=== PATIENT | male | born 1965 | race Asian ===

== ENCOUNTER 2017-01-03 14:01 | Inpatient (IN) | payer MEDICAID, OTHER ==
[~2017-01-03] VITALS: Ht 177.8 cm; Wt 92.6 kg
[~2017-01-03 14:01] MED LIST: ARIP10TA14 PO; DOCU250C76 PO; LISI-660 PO; TRAZ-147 PO
[2017-01-03] MEDS ORDERED: ACET-2247 PO (14:27)
[2017-01-03] MEDS ORDERED: CARV6 PO (14:27)
[2017-01-03] MEDS ORDERED: IBUP-2070 PO (14:27)
[2017-01-03] MEDS ORDERED: LISI-660 PO (14:27)
[2017-01-03] MEDS ORDERED: HALO5 PO (14:27)
[2017-01-03 15:01] LABS: BASOPHILS % (AUTO) 0.4 % (0.0-2.0); EOSINOPHILS % (AUTO) 1.3 % (1.0-6.0); HEMATOCRIT 47.5 % (41-53); HEMOGLOBIN 15.4 g/dL (13.5-17.5); LYMPHOCYTES # (AUTO) 1.6 K/uL (1.0-4.8); LYMPHOCYTES % (AUTO) 13.4 % (22.0-44.0); MEAN CORPUSCULAR HEMOGLOBIN 26.7 pg (26.0-34.0); MEAN CORPUSCULAR HGB CONC 32.5 G/dL (31.0-37.0); MEAN CORPUSCULAR VOLUME 82 fL (80-100); MONOCYTES # (AUTO) 0.8 K/uL (0.1-1.0); MONOCYTES % (AUTO) 6.7 % (2.0-9.0); NEUTROPHILS # (AUTO) 9.4 K/uL (1.8-7.7); NEUTROPHILS % (AUTO) 78.2 % (40.0-70.0); PLATELET COUNT (AUTO) 271 K/uL (150-450); RED BLOOD CELL COUNT(AUTO) 5.79 MIL/uL (4.50-5.90); RED CELL DISTRIBUTION WIDTH 15.6 % (11.5-14.5)
[2017-01-03 15:10] LABS: ANION GAP 8 mmol/L (8-16); CALCIUM, TOTAL 8.5 mg/dL (8.8-10.5); CARBON DIOXIDE 29 mmol/L (22-29); CHLORIDE 104 mmol/L (98-107); CREATININE 0.71 mg/dL (0.60-1.30); GLOMERULAR FILTR. RATE CALC > 60 mL/min (>60); SODIUM SERUM 141 mmol/L (136-145); UREA NITROGEN, BLOOD 12 mg/dL (7-18)
[2017-01-03 15:15] LABS: ALANINE AMINOTRANSFERASE 19 U/L (12-78); ASPARTATE AMINOTRANSFERASE 12 U/L (15-37); BILIRUBIN,TOTAL 0.4 mg/dL (0.1-1.0); TOTAL PROTEIN, SERUM 7.9 g/dL (6.4-8.2)
[2017-01-03] MEDS ORDERED: LORazepam 2 MG TABLET PO PRN (17:45)
[2017-01-03] MEDS ORDERED: PROMETHAZINE HCL 25 MG TABLET PO PRN (17:45)
[2017-01-03] MEDS ORDERED: MAGNESIUM HYDROXIDE SUSPENSION 30 ML UDCUP PO PRN (17:45)
[2017-01-03] MEDS ORDERED: ACETAMINOPHEN 325 MG TABLET PO PRN (17:45)
[2017-01-03] MEDS ORDERED: CYANOCOBALAMIN 1,000 MCG/ML VIAL IM ONE (17:45)
[2017-01-03] MEDS ORDERED: GuaiFENesin/D-METHORPHAN [SUGAR-FREE] 200-20MG/10 ML SYRUP UDCUP PO PRN (17:45)
[2017-01-03] MEDS ORDERED: HydrOXYzine PAMOATE 50 MG CAPSULE PO PRN (17:45)
[2017-01-03] MEDS ORDERED: LOPERAMIDE HCL 2 MG CAPSULE PO PRN (17:45)
[2017-01-03] MEDS ORDERED: ZOLPIDEM TARTRATE 10 MG TABLET PO PRN (17:45)
[2017-01-03] MEDS ORDERED: TUBERCULIN, PURIFIED PROTEIN DERIVATIVE 5 TU/0.1 ML SYG ID ONE (17:45)
[2017-01-03] MEDS ORDERED: MAG HYDROX/AL HYDROX/SIMETH ES 30 ML SUSPENSION UDCUP PO PRN (17:45)
[2017-01-03] MEDS ORDERED: QUEtiapine FUMARATE 100 MG TABLET PO PRN (17:45)
[2017-01-03] MEDS ORDERED: ARIP15TA3 PO (17:47)
[2017-01-03] MEDS ORDERED: MIRTAZAPINE 15 MG TABLET PO SCH (21:00)
[2017-01-03] MEDS ORDERED: PNEUMOCOCCAL VACCINE POLYVALENT 0.5 ML VIAL [PPSV23] IM ONE (21:45)
[2017-01-03 22:00] VITALS: BP 132/97
[2017-01-03] MEDS: THIAMINE HCL 100 MG TABLET PO SCH (22:02)
[2017-01-03] MEDS: QUEtiapine FUMARATE 200 MG TABLET PO SCH (22:02)
[2017-01-04 07:10] LABS: BASOPHILS % (AUTO) 0.3 % (0.0-2.0); EOSINOPHILS % (AUTO) 2.5 % (1.0-6.0); HEMATOCRIT 46.1 % (41-53); HEMOGLOBIN 14.9 g/dL (13.5-17.5); LYMPHOCYTES # (AUTO) 2.2 K/uL (1.0-4.8); LYMPHOCYTES % (AUTO) 21.1 % (22.0-44.0); MEAN CORPUSCULAR HEMOGLOBIN 26.7 pg (26.0-34.0); MEAN CORPUSCULAR HGB CONC 32.3 G/dL (31.0-37.0); MEAN CORPUSCULAR VOLUME 83 fL (80-100); MONOCYTES % (AUTO) 9.2 % (2.0-9.0); NEUTROPHILS # (AUTO) 7.1 K/uL (1.8-7.7); NEUTROPHILS % (AUTO) 66.9 % (40.0-70.0); PLATELET COUNT (AUTO) 235 K/uL (150-450); RED BLOOD CELL COUNT(AUTO) 5.58 MIL/uL (4.50-5.90); RED CELL DISTRIBUTION WIDTH 15.4 % (11.5-14.5); WHITE BLOOD COUNT (AUTO) 10.5 K/uL (4.5-11.0)
[2017-01-04 07:30] LABS: ALANINE AMINOTRANSFERASE 19 U/L (12-78); ALBUMIN 3.6 g/dL (3.4-5.0); ANION GAP 6 mmol/L (8-16); ASPARTATE AMINOTRANSFERASE 9 U/L (15-37); BILIRUBIN,TOTAL 0.4 mg/dL (0.1-1.0); CALCIUM, TOTAL 8.7 mg/dL (8.8-10.5); CARBON DIOXIDE 31 mmol/L (22-29); CHLORIDE 107 mmol/L (98-107); CHOL/HDL RATIO 3.7 (4.2-7.3); CREATININE 0.64 mg/dL (0.60-1.30); GLOMERULAR FILTR. RATE CALC > 60 mL/min (>60); POTASSIUM 3.9 mmol/L (3.5-5.1); SODIUM SERUM 144 mmol/L (136-145); THYROID STIMULATING HORMONE 0.61 uIU/mL (0.36-3.74); TOTAL PROTEIN, SERUM 7.4 g/dL (6.4-8.2); UREA NITROGEN, BLOOD 13 mg/dL (7-18)
[2017-01-04] MEDS ORDERED: ACETAMINOPHEN 325 MG TABLET PO PRN (07:30)
[2017-01-04 07:42] LABS: HEMOGLOBIN A1C 5.4 % (4.5-6.2)
[2017-01-04] MEDS: DOCUSATE SODIUM 250 MG CAPSULE PO SCH (08:33)
[2017-01-04] MEDS: MULTIVITAMINS WITH MINERALS, THERAPEUTIC TABLET PO SCH (08:34)
[2017-01-04] MEDS: THIAMINE HCL 100 MG TABLET PO SCH ×2 (08:34→16:33)
[2017-01-04] MEDS: LISINOPRIL 5 MG TABLET PO SCH (08:34)
[2017-01-04] MEDS: FOLIC ACID 1 MG TABLET PO SCH (08:34)
[2017-01-04 09:17] VITALS: BP 147/97
[2017-01-04 16:46] VITALS: BP 158/88
[2017-01-04] MEDS: QUEtiapine FUMARATE 200 MG TABLET PO SCH (20:11)
[2017-01-05 08:39] LABS: APPEARANCE,URINE CLEAR (CLEAR); GLUCOSE, URINE (UA) NEGATIVE (NEGATIVE); KETONES,URINE NEGATIVE (NEGATIVE); LEUKOCYTE ESTERASE ,URINE NEGATIVE (NEGATIVE); OCCULT BLOOD,URINE NEGATIVE (NEGATIVE); PROTEIN,URINE NEGATIVE (NEGATIVE)
[2017-01-05 08:42] LABS: ADD UA MICROSCOPIC NO
[2017-01-05] MEDS: THIAMINE HCL 100 MG TABLET PO SCH ×2 (09:17→16:04)
[2017-01-05] MEDS: LISINOPRIL 5 MG TABLET PO SCH (09:17)
[2017-01-05] MEDS: FOLIC ACID 1 MG TABLET PO SCH (09:17)
[2017-01-05] MEDS: DOCUSATE SODIUM 250 MG CAPSULE PO SCH (09:17)
[2017-01-05] MEDS: MULTIVITAMINS WITH MINERALS, THERAPEUTIC TABLET PO SCH (09:17)
[2017-01-05 09:47] VITALS: BP 113/92
[2017-01-05] MEDS: IBUPROFEN 600 MG TABLET PO PRN (12:48)
[2017-01-05] MEDS: QUEtiapine FUMARATE 200 MG TABLET PO SCH (19:58)
[2017-01-05 21:36] VITALS: BP 135/78
[2017-01-06 08:15] VITALS: BP 144/95
[2017-01-06] MEDS: FOLIC ACID 1 MG TABLET PO SCH (08:52)
[2017-01-06] MEDS: MULTIVITAMINS WITH MINERALS, THERAPEUTIC TABLET PO SCH (08:52)
[2017-01-06] MEDS: LISINOPRIL 5 MG TABLET PO SCH (08:53)
[2017-01-06] MEDS: DOCUSATE SODIUM 250 MG CAPSULE PO SCH (08:53)
[2017-01-06] MEDS: THIAMINE HCL 100 MG TABLET PO SCH ×2 (08:53→16:11)
[2017-01-06 12:23] VITALS: BP 135/89
[2017-01-06] MEDS: IBUPROFEN 600 MG TABLET PO PRN (12:23)
[2017-01-06 17:40] VITALS: BP 128/92
[2017-01-06] MEDS: QUEtiapine FUMARATE 200 MG TABLET PO SCH (20:14)
[2017-01-06] MEDS: DIVALPROEX SODIUM 500 MG ER TABLET PO SCH (20:14)
[2017-01-07] MEDS: THIAMINE HCL 100 MG TABLET PO SCH ×2 (08:31→16:21)
[2017-01-07] MEDS: FOLIC ACID 1 MG TABLET PO SCH (08:31)
[2017-01-07] MEDS: MULTIVITAMINS WITH MINERALS, THERAPEUTIC TABLET PO SCH (08:31)
[2017-01-07] MEDS: LISINOPRIL 5 MG TABLET PO SCH (08:31)
[2017-01-07] MEDS: DOCUSATE SODIUM 250 MG CAPSULE PO SCH (08:31)
[2017-01-07 10:54] VITALS: BP 148/94
[2017-01-07 16:54] VITALS: BP 132/93
[2017-01-07] MEDS: DIVALPROEX SODIUM 500 MG ER TABLET PO SCH (20:01)
[2017-01-07] MEDS: QUEtiapine FUMARATE 200 MG TABLET PO SCH (20:02)
[2017-01-08 08:04] VITALS: BP 128/95
[2017-01-08] MEDS: MULTIVITAMINS WITH MINERALS, THERAPEUTIC TABLET PO SCH (08:44)
[2017-01-08] MEDS: DOCUSATE SODIUM 250 MG CAPSULE PO SCH (08:44)
[2017-01-08] MEDS: THIAMINE HCL 100 MG TABLET PO SCH ×2 (08:45→15:59)
[2017-01-08] MEDS: FOLIC ACID 1 MG TABLET PO SCH (08:45)
[2017-01-08] MEDS: LISINOPRIL 5 MG TABLET PO SCH (08:45)
[2017-01-08 16:55] VITALS: BP 143/84
[2017-01-08] MEDS: DIVALPROEX SODIUM 500 MG ER TABLET PO SCH (20:09)
[2017-01-08] MEDS: QUEtiapine FUMARATE 200 MG TABLET PO SCH (20:09)
[2017-01-09 08:00] VITALS: BP 145/105
[2017-01-09] MEDS: THIAMINE HCL 100 MG TABLET PO SCH ×2 (08:49→15:49)
[2017-01-09] MEDS: DOCUSATE SODIUM 250 MG CAPSULE PO SCH (08:49)
[2017-01-09] MEDS: LISINOPRIL 5 MG TABLET PO SCH (08:49)
[2017-01-09] MEDS: FOLIC ACID 1 MG TABLET PO SCH (08:49)
[2017-01-09] MEDS: MULTIVITAMINS WITH MINERALS, THERAPEUTIC TABLET PO SCH (08:50)
[2017-01-09 10:25] VITALS: BP 140/92
[2017-01-09] MEDS: DIVALPROEX SODIUM 500 MG ER TABLET PO SCH (20:11)
[2017-01-09] MEDS: QUEtiapine FUMARATE 200 MG TABLET PO SCH (20:11)
[2017-01-09 21:19] VITALS: BP 136/86
[2017-01-10 08:59] VITALS: BP 154/100
[2017-01-10] MEDS: IBUPROFEN 600 MG TABLET PO PRN (09:04)
[2017-01-10] MEDS: THIAMINE HCL 100 MG TABLET PO SCH ×2 (09:05→16:15)
[2017-01-10] MEDS: LISINOPRIL 5 MG TABLET PO SCH (09:05)
[2017-01-10] MEDS: FOLIC ACID 1 MG TABLET PO SCH (09:05)
[2017-01-10] MEDS: MULTIVITAMINS WITH MINERALS, THERAPEUTIC TABLET PO SCH (09:05)
[2017-01-10] MEDS: DOCUSATE SODIUM 250 MG CAPSULE PO SCH (09:05)
[2017-01-10 11:26] VITALS: BP 135/99
[2017-01-10 14:55] VITALS: BP 131/79
[2017-01-10 16:52] VITALS: BP 129/75
[2017-01-10] MEDS: DIVALPROEX SODIUM 500 MG ER TABLET PO SCH (20:02)
[2017-01-10] MEDS: QUEtiapine FUMARATE 200 MG TABLET PO SCH (20:05)
[2017-01-11 08:00] VITALS: BP 139/100
[2017-01-11] MEDS: FOLIC ACID 1 MG TABLET PO SCH (08:06)
[2017-01-11] MEDS: DOCUSATE SODIUM 250 MG CAPSULE PO SCH (08:06)
[2017-01-11] MEDS: LISINOPRIL 5 MG TABLET PO SCH (08:06)
[2017-01-11] MEDS: MULTIVITAMINS WITH MINERALS, THERAPEUTIC TABLET PO SCH (08:06)
[2017-01-11] MEDS: THIAMINE HCL 100 MG TABLET PO SCH ×2 (08:07→17:04)
[2017-01-11 11:38] VITALS: BP 140/91
[2017-01-11] MEDS: IBUPROFEN 600 MG TABLET PO PRN (11:38)
[2017-01-11] MEDS ORDERED: QUET200T29 PO (12:20)
[2017-01-11] MEDS ORDERED: DIVA500T52 PO (12:20)
[2017-01-11 17:00] VITALS: BP 141/88
[2017-01-11] MEDS: QUEtiapine FUMARATE 200 MG TABLET PO SCH (20:16)
[2017-01-11] MEDS: DIVALPROEX SODIUM 500 MG ER TABLET PO SCH (20:16)
[2017-01-12] MEDS: THIAMINE HCL 100 MG TABLET PO SCH (08:00)
[2017-01-12] MEDS: MULTIVITAMINS WITH MINERALS, THERAPEUTIC TABLET PO SCH (08:01)
[2017-01-12] MEDS: DOCUSATE SODIUM 250 MG CAPSULE PO SCH (08:01)
[2017-01-12] MEDS: FOLIC ACID 1 MG TABLET PO SCH (08:01)
[2017-01-12] MEDS: LISINOPRIL 5 MG TABLET PO SCH (08:01)
[2017-01-12] MEDS ORDERED: DIVA500T52 PO (08:47)
[2017-01-12] MEDS ORDERED: QUET200T PO (08:48)
[2017-01-12 10:15] VITALS: BP 135/78
[2017-01-12] MEDS: IBUPROFEN 600 MG TABLET PO PRN (11:01)
== END 2017-01-12 13:50 | disposition home or self-care (01) | DRG 750 ==
LOC: EMS 14:03 → 3EI 20:16
PROVIDERS: ADMIT Psychiatry & Neurology Psychiatry; ATTEND Psychiatry & Neurology Psychiatry
PROC: GZ51ZZZ Individual Psychotherapy, Behavioral (ICD-10-PCS; principal; 2017-01-03)
DX: F25.0 Schizoaffective disorder, bipolar type (principal); R45.851 Suicidal ideations; G81.94 Hemiplegia, unspecified affecting left nondominant side; I10 Essential (primary) hypertension; G47.00 Insomnia, unspecified; M81.0 Age-related osteoporosis without current pathological fracture; F17.200 Nicotine dependence, unspecified, uncomplicated; G89.4 Chronic pain syndrome; K59.00 Constipation, unspecified; F12.90 Cannabis use, unspecified, uncomplicated; Z59.0 Homelessness; Z91.19 Patient's noncompliance with other medical treatment and regimen; Z88.0 Allergy status to penicillin; Z91.013 Allergy to seafood; Z79.899 Other long term (current) drug therapy; Z79.1 Long term (current) use of non-steroidal anti-inflammatories (NSAID); Z98.890 Other specified postprocedural states; Z90.49 Acquired absence of other specified parts of digestive tract; Z85.038 Personal history of other malignant neoplasm of large intestine; Z83.3 Family history of diabetes mellitus; Z82.5 Family history of asthma and other chronic lower respiratory diseases
CPT/HCPCS: 83036; 84439; 84443; 86592; 99285; G0480; J3420

== ENCOUNTER 2017-01-12 16:49 | Inpatient (IN) | payer MEDICAID, OTHER ==
[~2017-01-12] VITALS: Ht 177.8 cm; Wt 97.0 kg
[~2017-01-12 16:49] MED LIST changes: +ACET-2247 PO; -ARIP10TA14 PO; +ARIP15TA3 PO; +CARV6 PO; +DIVA500T52 PO; +HALO5 PO; +IBUP-2070 PO; +QUET200T PO; +QUET200T29 PO
[2017-01-12 18:46] LABS: ANION GAP 8 mmol/L (8-16); CALCIUM, TOTAL 8.5 mg/dL (8.8-10.5); CARBON DIOXIDE 26 mmol/L (22-29); CHLORIDE 102 mmol/L (98-107); CREATININE 0.58 mg/dL (0.60-1.30); GLOMERULAR FILTR. RATE CALC > 60 mL/min (>60); POTASSIUM 4.7 mmol/L (3.5-5.1); SODIUM SERUM 136 mmol/L (136-145); UREA NITROGEN, BLOOD 17 mg/dL (7-18)
[2017-01-12 18:52] LABS: ALANINE AMINOTRANSFERASE 20 U/L (12-78); ALBUMIN 3.3 g/dL (3.4-5.0); ASPARTATE AMINOTRANSFERASE 21 U/L (15-37); BILIRUBIN,TOTAL 0.4 mg/dL (0.1-1.0); TOTAL PROTEIN, SERUM 7.3 g/dL (6.4-8.2)
[2017-01-12 19:13] LABS: BASOPHILS % (AUTO) 0.1 % (0.0-2.0); EOSINOPHILS % (AUTO) 2.3 % (1.0-6.0); HEMATOCRIT 45.2 % (41-53); HEMOGLOBIN 14.6 g/dL (13.5-17.5); LYMPHOCYTES # (AUTO) 1.5 K/uL (1.0-4.8); LYMPHOCYTES % (AUTO) 13.1 % (22.0-44.0); MEAN CORPUSCULAR HEMOGLOBIN 26.8 pg (26.0-34.0); MEAN CORPUSCULAR HGB CONC 32.3 G/dL (31.0-37.0); MEAN CORPUSCULAR VOLUME 83 fL (80-100); MONOCYTES # (AUTO) 0.7 K/uL (0.1-1.0); MONOCYTES % (AUTO) 6.1 % (2.0-9.0); NEUTROPHILS # (AUTO) 8.8 K/uL (1.8-7.7); NEUTROPHILS % (AUTO) 78.4 % (40.0-70.0); PLATELET COUNT (AUTO) 213 K/uL (150-450); RED BLOOD CELL COUNT(AUTO) 5.45 MIL/uL (4.50-5.90); RED CELL DISTRIBUTION WIDTH 15.3 % (11.5-14.5); WHITE BLOOD COUNT (AUTO) 11.2 K/uL (4.5-11.0)
[2017-01-12] MEDS ORDERED: ZOLPIDEM TARTRATE 10 MG TABLET PO PRN (20:30)
[2017-01-12] MEDS ORDERED: HALOPERIDOL 5 MG TABLET PO PRN (20:30)
[2017-01-12 22:11] LABS: VALPROIC ACID 74 mcg/mL (50-100)
[2017-01-13 00:55] VITALS: BP 157/117
[2017-01-13] MEDS ORDERED: PNEUMOCOCCAL VACCINE POLYVALENT 0.5 ML VIAL [PPSV23] IM ONE (02:45)
[2017-01-13 08:57] VITALS: BP 152/95
[2017-01-13] MEDS ORDERED: CloNIDine HCL 0.1 MG TABLET PO PRN (09:45)
[2017-01-13] MEDS: LISINOPRIL 5 MG TABLET PO SCH (10:57)
[2017-01-13] MEDS: LOPERAMIDE HCL 2 MG CAPSULE PO PRN ×2 (10:58→14:25)
[2017-01-13 17:16] VITALS: BP 137/91
[2017-01-13] MEDS ORDERED: ACETAMINOPHEN 325 MG TABLET PO PRN ×2 (17:30→21:30)
[2017-01-13] MEDS: LORazepam 2 MG TABLET PO PRN (20:11)
[2017-01-13] MEDS ORDERED: ChlorproMAZINE HCL 100 MG TABLET PO PRN (21:30)
[2017-01-13] MEDS ORDERED: QUEtiapine FUMARATE 200 MG TABLET PO SCH (21:30)
[2017-01-14] MEDS: LISINOPRIL 5 MG TABLET PO SCH (08:20)
[2017-01-14 09:03] VITALS: BP 145/96
[2017-01-14] MEDS: IBUPROFEN 400 MG TABLET PO PRN (09:03)
[2017-01-14 16:00] VITALS: BP 136/84
[2017-01-14] MEDS: QUEtiapine FUMARATE 300 MG TABLET PO SCH (20:43)
[2017-01-14] MEDS ORDERED: QUEtiapine FUMARATE 200 MG TABLET PO SCH ×2 (21:00)
[2017-01-15 08:00] VITALS: BP 125/94
[2017-01-15] MEDS: LISINOPRIL 5 MG TABLET PO SCH (08:11)
[2017-01-15] MEDS: IBUPROFEN 400 MG TABLET PO PRN (08:11)
[2017-01-15 16:00] VITALS: BP 120/86
[2017-01-15] MEDS: QUEtiapine FUMARATE 300 MG TABLET PO SCH (20:03)
[2017-01-16 09:00] VITALS: BP 160/106
[2017-01-16] MEDS: LISINOPRIL 5 MG TABLET PO SCH (09:00)
[2017-01-16] MEDS: IBUPROFEN 400 MG TABLET PO PRN ×2 (09:03→17:52)
[2017-01-16 10:03] VITALS: BP 126/96
[2017-01-16 17:53] VITALS: BP 153/90
[2017-01-16] MEDS: QUEtiapine FUMARATE 300 MG TABLET PO SCH (20:16)
[2017-01-17] MEDS: LISINOPRIL 5 MG TABLET PO SCH (08:24)
[2017-01-17] MEDS: IBUPROFEN 400 MG TABLET PO PRN (08:26)
[2017-01-17 08:28] VITALS: BP 133/81
[2017-01-17 09:26] VITALS: BP 135/79
[2017-01-17] MEDS ORDERED: QUEtiapine FUMARATE 100 MG TABLET PO PRN (12:00)
[2017-01-17] MEDS ORDERED: PROMETHAZINE HCL 25 MG TABLET PO PRN (12:00)
[2017-01-17] MEDS ORDERED: MAG HYDROX/AL HYDROX/SIMETH ES 30 ML SUSPENSION UDCUP PO PRN (12:00)
[2017-01-17] MEDS ORDERED: HydrOXYzine PAMOATE 50 MG CAPSULE PO PRN (12:00)
[2017-01-17] MEDS ORDERED: MAGNESIUM HYDROXIDE SUSPENSION 30 ML UDCUP PO PRN (12:00)
[2017-01-17] MEDS ORDERED: GuaiFENesin/D-METHORPHAN [SUGAR-FREE] 200-20MG/10 ML SYRUP UDCUP PO PRN (12:00)
[2017-01-17] MEDS: THIAMINE HCL 100 MG TABLET PO SCH (16:01)
[2017-01-17] MEDS: LORazepam 2 MG TABLET PO PRN (16:01)
[2017-01-17 19:15] VITALS: BP 130/84
[2017-01-17] MEDS: DIVALPROEX SODIUM 500 MG ER TABLET PO SCH (20:05)
[2017-01-17] MEDS: QUEtiapine FUMARATE 200 MG TABLET PO SCH (20:05)
[2017-01-18 08:40] VITALS: BP 149/97
[2017-01-18] MEDS: FOLIC ACID 1 MG TABLET PO SCH (08:45)
[2017-01-18] MEDS: MULTIVITAMINS WITH MINERALS, THERAPEUTIC TABLET PO SCH (08:45)
[2017-01-18] MEDS: LISINOPRIL 5 MG TABLET PO SCH (08:45)
[2017-01-18] MEDS: THIAMINE HCL 100 MG TABLET PO SCH ×2 (08:45→16:52)
[2017-01-18] MEDS: IBUPROFEN 400 MG TABLET PO PRN (08:46)
[2017-01-18] MEDS: CELECOXIB 100 MG CAPSULE PO SCH ×2 (10:55→16:52)
[2017-01-18 20:00] VITALS: BP 139/90
[2017-01-18] MEDS: DIVALPROEX SODIUM 500 MG ER TABLET PO SCH (20:31)
[2017-01-18] MEDS: QUEtiapine FUMARATE 200 MG TABLET PO SCH (20:31)
[2017-01-19 08:22] VITALS: BP 156/103
[2017-01-19] MEDS: MULTIVITAMINS WITH MINERALS, THERAPEUTIC TABLET PO SCH (08:24)
[2017-01-19] MEDS: FOLIC ACID 1 MG TABLET PO SCH (08:24)
[2017-01-19] MEDS: NALTREXONE HCL 50 MG TABLET PO SCH (08:24)
[2017-01-19] MEDS: LISINOPRIL 5 MG TABLET PO SCH (08:24)
[2017-01-19] MEDS: CELECOXIB 100 MG CAPSULE PO SCH ×2 (08:24→16:19)
[2017-01-19] MEDS: THIAMINE HCL 100 MG TABLET PO SCH ×2 (08:25→16:19)
[2017-01-19] MEDS: LOPERAMIDE HCL 2 MG CAPSULE PO PRN (14:57)
[2017-01-19] MEDS: DIVALPROEX SODIUM 500 MG ER TABLET PO SCH (20:11)
[2017-01-19] MEDS: QUEtiapine FUMARATE 200 MG TABLET PO SCH (20:11)
[2017-01-19 22:42] VITALS: BP 136/89
[2017-01-20] MEDS: CELECOXIB 100 MG CAPSULE PO SCH ×2 (09:33→16:35)
[2017-01-20] MEDS: LISINOPRIL 5 MG TABLET PO SCH (09:33)
[2017-01-20] MEDS: FOLIC ACID 1 MG TABLET PO SCH (12:35)
[2017-01-20] MEDS: NALTREXONE HCL 50 MG TABLET PO SCH (12:35)
[2017-01-20] MEDS: THIAMINE HCL 100 MG TABLET PO SCH ×2 (12:35→16:34)
[2017-01-20] MEDS: MULTIVITAMINS WITH MINERALS, THERAPEUTIC TABLET PO SCH (12:35)
[2017-01-20] MEDS: LOPERAMIDE HCL 2 MG CAPSULE PO PRN ×2 (16:34→20:21)
[2017-01-20] MEDS: QUEtiapine FUMARATE 200 MG TABLET PO SCH (20:21)
[2017-01-20] MEDS: DIVALPROEX SODIUM 500 MG ER TABLET PO SCH (20:21)
[2017-01-21 08:00] VITALS: BP 131/97
[2017-01-21] MEDS: FOLIC ACID 1 MG TABLET PO SCH (08:49)
[2017-01-21] MEDS: CELECOXIB 100 MG CAPSULE PO SCH ×2 (08:49→16:25)
[2017-01-21] MEDS: THIAMINE HCL 100 MG TABLET PO SCH ×2 (08:49→16:25)
[2017-01-21] MEDS: NALTREXONE HCL 50 MG TABLET PO SCH (08:49)
[2017-01-21] MEDS: MULTIVITAMINS WITH MINERALS, THERAPEUTIC TABLET PO SCH (08:49)
[2017-01-21] MEDS: LISINOPRIL 5 MG TABLET PO SCH (08:50)
[2017-01-21] MEDS ORDERED: IBUPROFEN 400 MG TABLET PO PRN (11:30)
[2017-01-21] MEDS ORDERED: DIVA500T52 PO (14:41)
[2017-01-21] MEDS ORDERED: QUET200T29 PO (14:41)
[2017-01-21] MEDS ORDERED: NALT50 PO (14:41)
[2017-01-21] MEDS ORDERED: NALT50TA10 PO (14:47)
[2017-01-21] MEDS ORDERED: CELE100 PO (14:47)
== END 2017-01-21 18:15 | disposition home or self-care (01) | DRG 750 ==
LOC: EMS 16:58 → 3EI 20:44
PROVIDERS: ADMIT Psychiatry & Neurology Psychiatry; ATTEND Psychiatry & Neurology Psychiatry
PROC: GZ51ZZZ Individual Psychotherapy, Behavioral (ICD-10-PCS; 2017-01-12)
PROC: 3E0234Z Introduction of Serum, Toxoid and Vaccine into Muscle, Percutaneous Approach (ICD-10-PCS; principal; 2017-01-13)
DX: F25.0 Schizoaffective disorder, bipolar type (principal); R45.851 Suicidal ideations; I69.354 Hemiplegia and hemiparesis following cerebral infarction affecting left non-dominant side; I10 Essential (primary) hypertension; M81.0 Age-related osteoporosis without current pathological fracture; G89.29 Other chronic pain; F17.200 Nicotine dependence, unspecified, uncomplicated; D72.829 Elevated white blood cell count, unspecified; F10.10 Alcohol abuse, uncomplicated; K21.9 Gastro-esophageal reflux disease without esophagitis; F19.10 Other psychoactive substance abuse, uncomplicated; Z99.3 Dependence on wheelchair; Z91.14 Patient's other noncompliance with medication regimen; Z88.0 Allergy status to penicillin; Z91.013 Allergy to seafood; Z79.899 Other long term (current) drug therapy; Z85.038 Personal history of other malignant neoplasm of large intestine; Z90.49 Acquired absence of other specified parts of digestive tract; Z71.41 Alcohol abuse counseling and surveillance of alcoholic; Z71.6 Tobacco abuse counseling; Z71.51 Drug abuse counseling and surveillance of drug abuser; Z23 Encounter for immunization; Z82.5 Family history of asthma and other chronic lower respiratory diseases
CPT/HCPCS: 84443; 87081; 90471; 99285; G0480

== ENCOUNTER 2017-04-23 11:48 | Emergency (ER) | payer MEDICAID, OTHER ==
[~2017-04-23] VITALS: Ht 177.8 cm; Wt 106.8 kg
[~2017-04-23 11:48] MED LIST changes: -ACET-2247 PO; -ARIP15TA3 PO; -CARV6 PO; +CELE100 PO; -DOCU250C76 PO; -HALO5 PO; -IBUP-2070 PO; +NALT50 PO; -QUET200T PO; -TRAZ-147 PO
[2017-04-23] MEDS ORDERED: KETOROLAC TROMETHAMINE 60 MG/2 ML VIAL IM ONE (16:30)
[2017-04-23 16:55] LABS: ANION GAP 11 mmol/L (8-16); CALCIUM, TOTAL 8.8 mg/dL (8.8-10.5); CARBON DIOXIDE 27 mmol/L (22-29); CHLORIDE 107 mmol/L (98-107); CREATININE 0.65 mg/dL (0.60-1.30); GLOMERULAR FILTR. RATE CALC > 60 mL/min (>60); POTASSIUM 3.5 mmol/L (3.5-5.1); SODIUM SERUM 145 mmol/L (136-145); UREA NITROGEN, BLOOD 13 mg/dL (7-18)
[2017-04-23 17:00] LABS: BASOPHILS # (AUTO) 0.03 K/uL (0.00-0.20); BASOPHILS % (AUTO) 0.2 % (0.0-2.0); EOSINOPHILS # (AUTO) 0.12 K/uL (0.00-0.70); EOSINOPHILS % (AUTO) 1.06 % (1.0-6.0); HEMOGLOBIN 13.9 g/dL (13.5-17.5); LYMPHOCYTES # (AUTO) 1.5 K/uL (1.0-4.8); LYMPHOCYTES % (AUTO) 13.6 % (22.0-44.0); MEAN CORPUSCULAR HEMOGLOBIN 28.1 pg (26.0-34.0); MEAN CORPUSCULAR HGB CONC 33.2 G/dL (31.0-37.0); MEAN CORPUSCULAR VOLUME 85 fL (80-100); MONOCYTES # (AUTO) 1.3 K/uL (0.1-1.0); MONOCYTES % (AUTO) 11.2 % (2.0-9.0); NEUTROPHILS # (AUTO) 8.3 K/uL (1.8-7.7); PLATELET COUNT (AUTO) 187 K/uL (150-450); RED BLOOD CELL COUNT(AUTO) 4.95 MIL/uL (4.50-5.90); RED CELL DISTRIBUTION WIDTH 14.9 % (11.5-14.5); WHITE BLOOD COUNT (AUTO) 11.3 K/uL (4.5-11.0)
[2017-04-23 17:01] LABS: ALANINE AMINOTRANSFERASE 52 U/L (12-78); ALBUMIN 3.6 g/dL (3.4-5.0); ASPARTATE AMINOTRANSFERASE 47 U/L (15-37); BILIRUBIN,TOTAL 0.8 mg/dL (0.1-1.0); TOTAL PROTEIN, SERUM 7.6 g/dL (6.4-8.2)
[2017-04-23 18:10] VITALS: BP 144/99
== END 2017-04-23 19:00 | disposition home or self-care (01) ==
LOC: EMS 11:50
DX: K52.9 Noninfective gastroenteritis and colitis, unspecified (principal); R60.0 Localized edema; I10 Essential (primary) hypertension; M79.89 Other specified soft tissue disorders; G89.29 Other chronic pain; Z88.0 Allergy status to penicillin; Z91.013 Allergy to seafood
CPT/HCPCS: 36415; 80053; 83605; 83690; 85025; 85379; 87040; 93971; 96372; 99285; J1885

== ENCOUNTER 2017-12-15 22:31 | Emergency (ER) | payer OTHER ==
[~2017-12-15] VITALS: Ht 177.8 cm; Wt 104.5 kg
[~2017-12-15 22:31] MED LIST changes: -NALT50 PO; +NALT50TA6 PO
[2017-12-15] MEDS ORDERED: FERR-89 PO (22:54)
[2017-12-15] MEDS ORDERED: TAMS0.4C32 PO (22:54)
[2017-12-15] MEDS ORDERED: MELA1TAB17 PO (22:54)
[2017-12-15] MEDS ORDERED: TRAZ-147 PO (22:54)
[2017-12-15] MEDS ORDERED: AMIN30LI28 PO (22:54)
[2017-12-15] MEDS ORDERED: ARIP5TAB8 PO (22:54)
[2017-12-15] MEDS ORDERED: OXYC10 PO (22:54)
[2017-12-15] MEDS ORDERED: LACT30L PO (22:54)
[2017-12-15] MEDS ORDERED: METO-558 PO (22:54)
[2017-12-15] MEDS ORDERED: OS500 PO (22:54)
[2017-12-15] MEDS ORDERED: FAMO20 PO (22:54)
[2017-12-15] MEDS ORDERED: MIRT15 PO (22:54)
[2017-12-15] MEDS ORDERED: SENN-175 PO (22:54)
[2017-12-15] MEDS ORDERED: HALOPERIDOL LACTATE 5 MG/ML VIAL IM ONE ×2 (23:00→23:30)
[2017-12-15] MEDS ORDERED: DiphenhydrAMINE HCL 50 MG/ML VIAL IM ONE ×2 (23:00→23:30)
[2017-12-15] MEDS ORDERED: LORazepam 2 MG/ML VIAL IM ONE ×2 (23:00→23:30)
[2017-12-15 23:15] LABS: BASOPHILS % (AUTO) 0.7 % (0.0-2.0); EOSINOPHILS % (AUTO) 2.6 % (1.0-6.0); HEMATOCRIT 39.7 % (41-53); HEMOGLOBIN 13.2 g/dL (13.5-17.5); LYMPHOCYTES # (AUTO) 2.1 K/uL (1.0-4.8); LYMPHOCYTES % (AUTO) 13.8 % (22.0-44.0); MEAN CORPUSCULAR HEMOGLOBIN 26.4 pg (26.0-34.0); MEAN CORPUSCULAR HGB CONC 33.4 G/dL (31.0-37.0); MEAN CORPUSCULAR VOLUME 79 fL (80-100); MONOCYTES # (AUTO) 1.1 K/uL (0.1-1.0); MONOCYTES % (AUTO) 6.9 % (2.0-9.0); NEUTROPHILS # (AUTO) 11.7 K/uL (1.8-7.7); PLATELET COUNT (AUTO) 256 K/uL (150-450); RED BLOOD CELL COUNT(AUTO) 5.02 MIL/uL (4.50-5.90); RED CELL DISTRIBUTION WIDTH 17.2 % (11.5-14.5)
[2017-12-15 23:37] LABS: ALANINE AMINOTRANSFERASE 26 U/L (12-78); ALKALINE PHOSPHATASE 158 U/L (46-116); ASPARTATE AMINOTRANSFERASE 14 U/L (15-37); BILIRUBIN,TOTAL 0.3 mg/dL (0.1-1.0); CARBON DIOXIDE 29 mmol/L (22-29); CREATININE 0.57 mg/dL (0.60-1.30); GLOMERULAR FILTR. RATE CALC > 60 mL/min (>60); GLUCOSE,RANDOM 111 mg/dL (70-110); TOTAL PROTEIN, SERUM 7.3 g/dL (6.4-8.2); UREA NITROGEN, BLOOD 9 mg/dL (7-18)
[2017-12-15 23:56] LABS: ANION GAP 8 mmol/L (8-16); CHLORIDE 101 mmol/L (98-107); POTASSIUM 3.9 mmol/L (3.5-5.1); SODIUM SERUM 138 mmol/L (136-145)
[2017-12-16 00:20] VITALS: BP 128/78
== END 2017-12-16 01:51 | disposition home or self-care (01) ==
LOC: EMS 22:33
DX: G47.00 Insomnia, unspecified (principal); R45.851 Suicidal ideations; F32.9 Major depressive disorder, single episode, unspecified; I10 Essential (primary) hypertension; F20.9 Schizophrenia, unspecified; Z88.0 Allergy status to penicillin; Z91.013 Allergy to seafood
CPT/HCPCS: 36415; 80053; 85025; 96372; 99285; G0480; J1200; J1630; J2060

== ENCOUNTER 2018-01-19 15:30 | Emergency (ER) | payer OTHER ==
[~2018-01-19] VITALS: Ht 177.8 cm; Wt 84.1 kg
[~2018-01-19 15:30] MED LIST changes: +AMIN30LI28 PO; +ARIP5TAB8 PO; -CELE100 PO; -DIVA500T52 PO; +FAMO20 PO; +FERR-89 PO; +LACT30L PO; -LISI-660 PO; +MELA1TAB17 PO; +METO-558 PO; +MIRT15 PO; -NALT50TA6 PO; +OS500 PO; +OXYC10 PO; -QUET200T29 PO; +SENN-175 PO; +TAMS0.4C32 PO; +TRAZ-147 PO
[2018-01-19] MEDS ORDERED: METO50 PO (15:49)
[2018-01-19 16:01] VITALS: BP 149/95
== END 2018-01-19 17:29 | disposition home or self-care (01) ==
LOC: EMS 15:31
DX: F20.9 Schizophrenia, unspecified (principal); R46.89 Other symptoms and signs involving appearance and behavior; F32.9 Major depressive disorder, single episode, unspecified; I10 Essential (primary) hypertension; Z88.0 Allergy status to penicillin; Z91.013 Allergy to seafood
CPT/HCPCS: 99284

== ENCOUNTER 2018-09-11 11:25 | Emergency (ER) | payer OTHER ==
[~2018-09-11] VITALS: Ht 177.8 cm; Wt 106.8 kg
[~2018-09-11 11:25] MED LIST changes: -METO-558 PO; +METO50 PO; -SENN-175 PO; +SENN-176 PO; -TRAZ-147 PO; +TRAZ-220 PO
[2018-09-11] MEDS ORDERED: HYDR28.35 TP (11:35)
[2018-09-11] MEDS ORDERED: ACETAMINOPHEN 500 MG TABLET PO ONE (12:30)
[2018-09-11] MEDS ORDERED: MINERAL OIL/PETROLATUM 120 GM CREAM TP ONE (12:30)
[2018-09-11] MEDS ORDERED: DiphenhydrAMINE/ZINC ACET 30 GM CREAM TP ONE (12:30)
[2018-09-11 13:45] VITALS: BP 128/85
== END 2018-09-11 13:46 | disposition home or self-care (01) ==
LOC: EMS 11:27
DX: R21 Rash and other nonspecific skin eruption (principal); G89.29 Other chronic pain; M79.604 Pain in right leg; M79.605 Pain in left leg; I10 Essential (primary) hypertension; F20.9 Schizophrenia, unspecified; F32.9 Major depressive disorder, single episode, unspecified; Z88.0 Allergy status to penicillin; Z91.013 Allergy to seafood